=== PATIENT | female | born 1985 | race Caucasian/White ===

== ENCOUNTER 2017-02-05 06:43 | Day surgery (SDC) | payer BC ==
[2017-02-04 16:27] VITALS: BMI 40.0
[2017-02-05] MEDS ORDERED: MIDAZOLAM HCL 2 MG/2 ML SINGLE DOSE VIAL ONE ×2 (08:01)
[2017-02-05] MEDS ORDERED: IBUPROFEN 800 MG/8 ML IJ IVPB PRN (08:25)
--- NOTE | 2017-02-05 08:25 | HP ---
History & Physical Update - History History: No Change - Physical Physical: No Change - Assessment Assessment: No Change - Plan Plan: No Change
[2017-02-05] MEDS ORDERED: ACETAMINOPHEN 1000 MG/100 ML VIAL (NON FORMULARY) IVPB ONE ×2 (08:26→09:32)
[2017-02-05] MEDS ORDERED: DEXTROSE 5%-0.45% SALINE 1,000 ML IV SCH (08:30)
[2017-02-05] MEDS ORDERED: PROPOFOL 20 ML ONE (08:35)
[2017-02-05] MEDS ORDERED: SUCCINYLCHOLINE CHLORIDE 200 MG/10 ML VIAL ONE (08:35)
[2017-02-05] MEDS ORDERED: LEVOFLOXACIN 500 MG PREMIX BAG IVPB ONE (08:35)
[2017-02-05] MEDS ORDERED: LIDOCAINE HCL/PF 2% SDV 5ML VIAL ONE (08:41)
[2017-02-05] MEDS ORDERED: DEXAMETHASONE SOD PHOSPHATE 4 MG/1 ML VIAL ONE (08:41)
--- NOTE | 2017-02-05 09:16 | OP ---
DATE OF OPERATION: 02/05/2017 PREOPERATIVE DIAGNOSIS: Left hydronephrosis. POSTOPERATIVE DIAGNOSIS: Left hydronephrosis. PROCEDURE PERFORMED: Cystoscopy, left ureteral stent placement, retrograde pyelogram. SURGEON: Gabriele Amin M.D. ANESTHESIA: General. ANESTHESIOLOGIST: Yarely Hahn M.D. INDICATIONS: The patient is a 32-year-old female with a chronic obstruction of the left kidney. She has had stents before, but they have become encrusted and have been painful. When she does not have stents, she develops UTIs. She requests to have a stent placed. DESCRIPTION OF PROCEDURE: The patient was brought to the OR and placed on the table in the supine position. She was given general anesthesia and IV antibiotics, and placed in the modified lithotomy position. The groin was prepped and draped sterilely. Cystoscopy was performed. The left ureteral orifice was visualized. A wire was placed up into the left kidney. A retrograde pyelogram was performed, which revealed obstruction of the left kidney. A metal stent was placed through its sheath, one loop in the renal pelvis and one loop in the bladder. The bladder was emptied. The patient was woken up. Jaxson [id number]
[2017-02-05] MEDS ORDERED: ACETAMINOPHEN INJECTION 100 ML IVPB ONE (09:23)
[2017-02-05] MEDS ORDERED: oxyCODONE HCL 5 MG TABLET PO PRN (09:52)
[2017-02-05] MEDS ORDERED: ONDANSETRON 4 MG/2 ML VIAL IVPUSH PRN (09:52)
[2017-02-05] MEDS ORDERED: PROMETHAZINE HCL 25 MG/1 ML VIAL IVPUSH PRN (09:52)
[2017-02-05] MEDS ORDERED: LACTATED RINGERS SOLUTION 1,000 ML IV SCH (10:00)
[2017-02-05 10:48] VITALS: TEMP 98.2
[2017-02-05] MEDS ORDERED: oxyCODONE HCL 5 MG TABLET ONE (11:19)
[2017-02-05 12:42] VITALS: BP 124/50; PULSE 89
== END 2017-02-05 12:30 | disposition home or self-care (01) ==
LOC: JASU-SURG 06:43
PROVIDERS: ATTEND Urology
PROC: 0T778DZ Dilation of Left Ureter with Intraluminal Device, Via Natural or Artificial Opening Endoscopic (ICD-10-PCS; principal; 2017-02-05 08:00)
PROC: 0T778DZ Dilation of Left Ureter with Intraluminal Device, Via Natural or Artificial Opening Endoscopic (ICD-10-PCS; 2017-02-05 08:00)
DX: N13.30 Unspecified hydronephrosis (principal)
CPT/HCPCS: 76000-TC; 84703; 94760